=== PATIENT | male | born 1970 | race Caucasian/White ===

== ENCOUNTER 2024-01-12 11:21 | Emergency (ER) | payer MEDICAID ==
[2024-01-12 12:38] LABS: BASOPHILS ABSOLUTE AUTO 0.05 K/uL (0.00-0.20); BASOPHILS PERCENT AUTO 0.6 % (0.0-1.0); EOSINOPHILS PERCENT AUTO 1.1 % (0.0-6.0); HEMATOCRIT 39.1 % (42.0-52.0); HEMOGLOBIN 13.4 g/dL (14.0-18.0); IMMATURE GRAN ABSOLUTE AUTO 0.03 K/uL (0.00-0.05); IMMATURE GRAN PERCENT AUTO 0.3 % (0.0-0.4); LYMPHOCYTES ABSOLUTE AUTO 1.62 K/uL (1.00-4.80); LYMPHOCYTES PERCENT AUTO 18.4 % (24.0-44.0); MEAN CORPUSCULAR HEMOGLOBIN 29.6 pg (28.0-32.0); MEAN CORPUSCULAR HGB CONC 34.3 g/dL (32.0-36.0); MEAN CORPUSCULAR VOLUME 86.3 fL (83.0-99.0); MEAN PLATELET VOLUME 10.8 fL (9.4-12.4); MONOCYTES ABSOLUTE AUTO 0.72 K/uL (0.00-0.80); MONOCYTES PERCENT AUTO 8.2 % (0.0-8.0); NEUTROPHILS ABSOLUTE AUTO 6.29 K/uL (1.80-7.70); NEUTROPHILS PERCENT AUTO 71.4 % (41.0-71.0); PLATELET COUNT,PLT 234 K/uL (150-400); RED BLOOD CELL COUNT 4.53 M/uL (4.52-5.90); WHITE BLOOD CELL COUNT,WBC 8.81 K/uL (3.9-11.3)
[2024-01-12 13:04] LABS: APPEARANCE,URINE CLEAR; BILIRUBIN,URINE NEGATIVE (NEGATIVE); COLOR,URINE YELLOW; GLUCOSE,URINE NEGATIVE (NEGATIVE); KETONES,URINE NEGATIVE (NEGATIVE); LEUKOCYTE ESTERASE,URINE NEGATIVE (NEGATIVE); NITRITE,URINE NEGATIVE (NEGATIVE); OCCULT BLOOD,URINE NEGATIVE (NEGATIVE); PH,URINE 7.5 (5.0-8.0); PROTEIN,URINE NEGATIVE (NEGATIVE); UROBILINOGEN,URINE 0.2 EU/dL (<2.0)
[2024-01-12 13:11] LABS: A/G RATIO 0.9 (0.9-1.6); ALBUMIN 3.7 g/dL (3.4-5.0); BILIRUBIN TOTAL 0.5 mg/dL (0.2-1.0); CARBON DIOXIDE,CO2 31.6 mmol/L (21.0-32.0); CREATININE 1.2 mg/dL (0.8-1.3); EST CRCL DRUG DOSING (CG) 71.19 mL/min; POTASSIUM,K 3.1 mmol/L (3.5-5.1)
[2024-01-12] MEDS: Iopamidol 755 MG/ML 500 ML Multipack Bottle IVPUSH STA (13:49)
[2024-01-12] MEDS: Benzonatate 100 MG Cap PO STA (14:18)
[2024-01-12] MEDS: Potassium Chloride 20 MEQ Tab.ER PO STA (15:08)
== END 2024-01-12 15:23 | disposition home or self-care (01) ==
LOC: MW.ED 11:21
DX: J32.9 Chronic sinusitis, unspecified (principal); B96.89 Other specified bacterial agents as the cause of diseases classified elsewhere; E87.6 Hypokalemia; Z75.8 Other problems related to medical facilities and other health care; I12.9 Hypertensive chronic kidney disease with stage 1 through stage 4 chronic kidney disease, or unspecified chronic kidney disease; N18.9 Chronic kidney disease, unspecified; E78.00 Pure hypercholesterolemia, unspecified; E11.9 Type 2 diabetes mellitus without complications
CPT/HCPCS: 36415; 51798; 74177; 80053; 81003; 83690; 83735; 85025; 99284; A9270; Q9967

== ENCOUNTER 2024-04-12 21:20 | Emergency (ER) | payer MEDICAID | END 2024-04-12 22:17 | disposition left against medical advice (07) | LOC: MW.ED 21:20 | DX: Z53.21 Procedure and treatment not carried out due to patient leaving prior to being seen by health care provider (principal) ==

== ENCOUNTER 2024-04-24 10:46 | Emergency (ER) | payer MEDICAID ==
[2024-04-24 11:11] LABS: APPEARANCE,URINE CLEAR; BILIRUBIN,URINE NEGATIVE (NEGATIVE); COLOR,URINE YELLOW; GLUCOSE,URINE NEGATIVE (NEGATIVE); KETONES,URINE NEGATIVE (NEGATIVE); LEUKOCYTE ESTERASE,URINE NEGATIVE (NEGATIVE); NITRITE,URINE NEGATIVE (NEGATIVE); OCCULT BLOOD,URINE NEGATIVE (NEGATIVE); PH,URINE 7.5 (5.0-8.0); PROTEIN,URINE NEGATIVE (NEGATIVE); UROBILINOGEN,URINE 0.2 EU/dL (<2.0)
[2024-04-24] MEDS: Sodium Chloride 0.9% 1,000 ML IV ONE (12:45)
[2024-04-24] MEDS: HYDROmorphone 1 MG/ML Syringe IVPUSH ONE (12:45)
[2024-04-24] MEDS: Ondansetron 4 MG/2 ML SDV IVPUSH ONE (12:45)
[2024-04-24 12:55] LABS: BASOPHILS ABSOLUTE AUTO 0.06 K/uL (0.00-0.20); BASOPHILS PERCENT AUTO 0.5 % (0.0-1.0); EOSINOPHILS ABSOLUTE AUTO 0.16 K/uL (0.00-0.45); EOSINOPHILS PERCENT AUTO 1.3 % (0.0-6.0); HEMATOCRIT 36.8 % (42.0-52.0); HEMOGLOBIN 12.2 g/dL (14.0-18.0); IMMATURE GRAN ABSOLUTE AUTO 0.05 K/uL (0.00-0.05); IMMATURE GRAN PERCENT AUTO 0.4 % (0.0-0.4); LYMPHOCYTES ABSOLUTE AUTO 1.66 K/uL (1.00-4.80); LYMPHOCYTES PERCENT AUTO 13.8 % (24.0-44.0); MEAN CORPUSCULAR HEMOGLOBIN 27.2 pg (28.0-32.0); MEAN CORPUSCULAR HGB CONC 33.2 g/dL (32.0-36.0); MEAN CORPUSCULAR VOLUME 82.1 fL (83.0-99.0); MEAN PLATELET VOLUME 10.3 fL (9.4-12.4); MONOCYTES PERCENT AUTO 11.6 % (0.0-8.0); NEUTROPHILS ABSOLUTE AUTO 8.72 K/uL (1.80-7.70); NEUTROPHILS PERCENT AUTO 72.4 % (41.0-71.0); PLATELET COUNT,PLT 238 K/uL (150-400); RED BLOOD CELL COUNT 4.48 M/uL (4.52-5.90); WHITE BLOOD CELL COUNT,WBC 12.05 K/uL (3.9-11.3)
[2024-04-24] MEDS: Acetaminophen/oxyCODONE 325-10 MG Tab PO ONE (12:55)
[2024-04-24] MEDS: Ondansetron 4 MG Tab.DIS PO ONE (12:55)
[2024-04-24 13:26] LABS: A/G RATIO 0.8 (0.9-1.6); ALBUMIN 3.2 g/dL (3.4-5.0); BILIRUBIN TOTAL 0.4 mg/dL (0.2-1.0); CALCIUM 9.3 mg/dL (8.5-10.1); CARBON DIOXIDE,CO2 31.3 mmol/L (21.0-32.0); CREATININE 1.2 mg/dL (0.8-1.3); EST CRCL DRUG DOSING (CG) 70.37 mL/min; PROTEIN TOTAL,TP 7.4 g/dL (6.4-8.2)
== END 2024-04-24 13:37 | disposition left against medical advice (07) ==
LOC: MW.ED 10:46
DX: R10.9 Unspecified abdominal pain (principal); I12.9 Hypertensive chronic kidney disease with stage 1 through stage 4 chronic kidney disease, or unspecified chronic kidney disease; N18.9 Chronic kidney disease, unspecified; E11.22 Type 2 diabetes mellitus with diabetic chronic kidney disease; E78.00 Pure hypercholesterolemia, unspecified; J44.9 Chronic obstructive pulmonary disease, unspecified; Z79.899 Other long term (current) drug therapy; Z79.84 Long term (current) use of oral hypoglycemic drugs; Z53.29 Procedure and treatment not carried out because of patient's decision for other reasons; Z75.8 Other problems related to medical facilities and other health care
CPT/HCPCS: 36415; 74176; 80053; 81003; 85025; 96361; 96374; 96375; 99284; J1171; J2405; J7030

== ENCOUNTER 2024-09-08 19:03 | Emergency (ER) | payer MEDICAID ==
[2024-09-08] MEDS ORDERED: Sodium Chloride 0.9% 2.5 ML Syringe FLUSH PRN (19:11)
[2024-09-08] MEDS ORDERED: Sodium Chloride 0.9% 10 ML Syringe FLUSH PRN (19:11)
[2024-09-08] MEDS ORDERED: Sodium Chloride 0.9% 20 ML SDV IV PRN (19:11)
[2024-09-08] MEDS: Ondansetron 4 MG/2 ML SDV IVPUSH ONE (19:19)
[2024-09-08] MEDS: hydrALAZINE 20 MG/ML SDV IV ONE (19:19)
[2024-09-08] MEDS: Nitroglycerin 2% Oint 1 GM UD Packet TOP ONE (19:20)
[2024-09-08 19:22] LABS: HEMATOCRIT 47.3 % (42.0-52.0); HEMOGLOBIN 15.2 g/dL (14.0-18.0); MEAN CORPUSCULAR HEMOGLOBIN 26.9 pg (28.0-32.0); MEAN CORPUSCULAR HGB CONC 32.1 g/dL (32.0-36.0); MEAN CORPUSCULAR VOLUME 83.7 fL (83.0-99.0); PLATELET COUNT,PLT 306 K/uL (150-400); RED BLOOD CELL COUNT 5.65 M/uL (4.52-5.90); WHITE BLOOD CELL COUNT,WBC 15.42 K/uL (3.9-11.3)
[2024-09-08 19:35] LABS: INR 0.93 (0.86-1.11); PTT,PARTIAL THROMBOPLSTIN TIME 27.2 SEC (23.9-30.7)
[2024-09-08 19:50] LABS: SEG NEUTROPHILS ABSOLUTE MAN 10.18 K/uL (1.80-7.70); SEG NEUTROPHILS PERCENT MAN 66 % (41-71)
[2024-09-08 19:51] LABS: BASOPHILS ABSOLUTE MAN 0.15 K/uL (0.00-0.20); BASOPHILS PERCENT MAN 1 % (0-1); LYMPHOCYTES PERCENT MAN 24 % (24-44); MONOCYTES ABSOLUTE MAN 1.39 K/uL (0.00-0.80); MONOCYTES PERCENT MAN 9 % (0-8)
[2024-09-08 20:01] LABS: A/G RATIO 0.8 (0.9-1.6); ALANINE AMINOTRANSFERASE,ALT 23 IU/L (14-63); ALBUMIN 3.8 g/dL (3.4-5.0); ALKALINE PHOSPHATASE 77 U/L (46-116); ASPARTATE AMNIOTRANSFERASE,AST 21 IU/L (15-37); BILIRUBIN TOTAL 0.4 mg/dL (0.2-1.0); BLOOD UREA NITROGEN,BUN 10 mg/dL (7.0-18.0); CALCIUM 9.3 mg/dL (8.5-10.1); CHLORIDE,CL 98 mmol/L (98-107); CREATININE 1.3 mg/dL (0.8-1.3); GLUCOSE RANDOM 130 mg/dL (74-106); LIPASE 38 U/L (16-77); MAGNESIUM 1.8 mg/dL (1.8-2.4); POTASSIUM,K 3.5 mmol/L (3.5-5.1); PRO B-TYPE NATRIUR PEPT,BNPPRO 388 pg/mL (0-125); PROTEIN TOTAL,TP 8.5 g/dL (6.4-8.2); SODIUM,NA 137 mmol/L (136-148)
[2024-09-08 20:30] LABS: ESTIMATED GFR 65 mL/min (>60)
== END 2024-09-08 21:53 | disposition home or self-care (01) ==
LOC: MW.ED 19:03
DX: I16.0 Hypertensive urgency (principal); R07.9 Chest pain, unspecified; R11.2 Nausea with vomiting, unspecified; I10 Essential (primary) hypertension; E78.00 Pure hypercholesterolemia, unspecified; E11.9 Type 2 diabetes mellitus without complications; F17.210 Nicotine dependence, cigarettes, uncomplicated; Z79.84 Long term (current) use of oral hypoglycemic drugs; Z79.899 Other long term (current) drug therapy; Z79.51 Long term (current) use of inhaled steroids
CPT/HCPCS: 36415; 70450; 71045; 80053; 83690; 83735; 83880; 84484; 85025; 85610; 85730; 93005; 96374; 96375; 99285; A9270; J0360; J2405; 93010; 99284

== ENCOUNTER 2024-10-15 00:10 | Emergency (ER) | payer MEDICAID ==
[2024-10-15 00:24] LABS: BASOPHILS ABSOLUTE AUTO 0.06 K/uL (0.00-0.20); BASOPHILS PERCENT AUTO 0.5 % (0.0-1.0); EOSINOPHILS ABSOLUTE AUTO 0.14 K/uL (0.00-0.45); EOSINOPHILS PERCENT AUTO 1.1 % (0.0-6.0); IMMATURE GRAN ABSOLUTE AUTO 0.05 K/uL (0.00-0.05); IMMATURE GRAN PERCENT AUTO 0.4 % (0.0-0.4); LYMPHOCYTES ABSOLUTE AUTO 2.28 K/uL (1.00-4.80); LYMPHOCYTES PERCENT AUTO 17.4 % (24.0-44.0); MEAN PLATELET VOLUME 10.0 fL (9.4-12.4); MONOCYTES ABSOLUTE AUTO 1.24 K/uL (0.00-0.80); MONOCYTES PERCENT AUTO 9.5 % (0.0-8.0); NEUTROPHILS ABSOLUTE AUTO 9.31 K/uL (1.80-7.70); NEUTROPHILS PERCENT AUTO 71.1 % (41.0-71.0); NRBC ABSOLUTE 0.00 K/uL (0.00-0.02); NRBC PERCENT 0.0 /100WBC (0.0-0.2); PLATELET COUNT,PLT 229 K/uL (150-400); RED BLOOD CELL COUNT 4.96 M/uL (4.52-5.90); WHITE BLOOD CELL COUNT,WBC 13.08 K/uL (3.9-11.3)
[2024-10-15] MEDS: Nitroglycerin 0.4 MG Tab.SL SL ONE (00:38)
[2024-10-15 00:50] LABS: A/G RATIO 0.8 (0.9-1.6); ALANINE AMINOTRANSFERASE,ALT 21.0 IU/L (14-63); BILIRUBIN TOTAL 0.3 mg/dL (0.2-1.0); BLOOD UREA NITROGEN,BUN 12.0 mg/dL (7.0-18.0); CARBON DIOXIDE,CO2 29.1 mmol/L (21.0-32.0); CHLORIDE,CL 98.0 mmol/L (98-107); CREATININE 1.2 mg/dL (0.8-1.3); EST CRCL DRUG DOSING (CG) 65.79 mL/min; GLUCOSE RANDOM 139.0 mg/dL (74-106); POTASSIUM,K 4.1 mmol/L (3.5-5.1); PRO B-TYPE NATRIUR PEPT,BNPPRO 441.0 pg/mL (0-125); PROTEIN TOTAL,TP 7.7 g/dL (6.4-8.2); SODIUM,NA 139.0 mmol/L (136-148)
[2024-10-15 01:00] LABS: ESTIMATED GFR 72.0 mL/min (>60)
[2024-10-15 01:33] LABS: ASPARTATE AMNIOTRANSFERASE,AST 35.0 IU/L (15-37)
[2024-10-15] MEDS: Iopamidol 755 Mg/ML 100 ML Bottle IVPUSH ONE (02:09)
== END 2024-10-15 03:37 | disposition home or self-care (01) ==
LOC: MW.ED 00:10
DX: R07.9 Chest pain, unspecified (principal); I10 Essential (primary) hypertension; R93.89 Abnormal findings on diagnostic imaging of other specified body structures; E78.00 Pure hypercholesterolemia, unspecified; E66.9 Obesity, unspecified; E11.40 Type 2 diabetes mellitus with diabetic neuropathy, unspecified; Z79.899 Other long term (current) drug therapy; Z68.38 Body mass index [BMI] 38.0-38.9, adult
CPT/HCPCS: 36415; 71045; 71275; 80053; 83690; 83735; 83880; 84484; 85025; 85379; 93005; 96374; 99285; A9270; Q9967; 93010; 99284; J1171

== ENCOUNTER 2025-02-07 01:10 | Emergency (ER) | payer MEDICAID ==
[2025-02-07 01:31] LABS: MEAN PLATELET VOLUME 10.1 fL (9.4-12.4); NRBC ABSOLUTE 0.00 K/uL (0.00-0.02); NRBC PERCENT 0.0 /100WBC (0.0-0.2); PLATELET COUNT,PLT 326 K/uL (150-400); RED BLOOD CELL COUNT 5.18 M/uL (4.52-5.90); WHITE BLOOD CELL COUNT,WBC 22.02 K/uL (3.9-11.3)
[2025-02-07 01:45] LABS: LYMPHOCYTES ABSOLUTE MAN 4.62 K/uL (1.00-4.80); LYMPHOCYTES PERCENT MAN 21 % (24-44); SEG NEUTROPHILS ABSOLUTE MAN 14.75 K/uL (1.80-7.70); SEG NEUTROPHILS PERCENT MAN 67 % (41-71)
[2025-02-07 01:46] LABS: MONOCYTES ABSOLUTE MAN 2.64 K/uL (0.00-0.80); MONOCYTES PERCENT MAN 12 % (0-8)
[2025-02-07 01:51] LABS: A/G RATIO 0.9 (0.9-1.6); ALANINE AMINOTRANSFERASE,ALT 28.0 IU/L (14-63); ASPARTATE AMNIOTRANSFERASE,AST 29.0 IU/L (15-37); BILIRUBIN TOTAL 0.5 mg/dL (0.2-1.0); BLOOD UREA NITROGEN,BUN 18.0 mg/dL (7.0-18.0); CARBON DIOXIDE,CO2 33.3 mmol/L (21.0-32.0); CHLORIDE,CL 92.0 mmol/L (98-107); CREATININE 1.1 mg/dL (0.8-1.3); EST CRCL DRUG DOSING (CG) 75.88 mL/min; ESTIMATED GFR 79.0 mL/min (>60); GLUCOSE RANDOM 91.0 mg/dL (74-106); POTASSIUM,K 3.0 mmol/L (3.5-5.1); PRO B-TYPE NATRIUR PEPT,BNPPRO 121.0 pg/mL (0-125); PROTEIN TOTAL,TP 8.5 g/dL (6.4-8.2); SODIUM,NA 136.0 mmol/L (136-148)
[2025-02-07] MEDS: Potassium Chloride 20 MEQ Tab.ER PO ONE (03:52)
[2025-02-07] MEDS: Magnesium Sulfate 2 GM/50 mL 2 GM in Premix Bag 1 BAG IV ONE (03:52)
[2025-02-07 04:07] LABS: APPEARANCE,URINE CLEAR; GLUCOSE,URINE NEGATIVE (NEGATIVE); OCCULT BLOOD,URINE NEGATIVE (NEGATIVE)
[2025-02-07] MEDS: Iopamidol 755 MG/ML 500 ML Multipack Bottle IVPUSH STA (04:16)
== END 2025-02-07 05:25 | disposition home or self-care (01) ==
LOC: MW.ED 01:10
DX: J18.9 Pneumonia, unspecified organism (principal); E87.6 Hypokalemia; R07.89 Other chest pain; E83.42 Hypomagnesemia; I10 Essential (primary) hypertension; E78.00 Pure hypercholesterolemia, unspecified; E11.9 Type 2 diabetes mellitus without complications; E66.9 Obesity, unspecified; K21.9 Gastro-esophageal reflux disease without esophagitis; F17.200 Nicotine dependence, unspecified, uncomplicated; Z79.899 Other long term (current) drug therapy; Z79.84 Long term (current) use of oral hypoglycemic drugs; Z68.31 Body mass index [BMI] 31.0-31.9, adult
CPT/HCPCS: 36415; 71045; 71260; 74177; 80053; 81003; 83735; 83880; 84484; 85025; 85379; 93005; 96365; 99285; A9270; J3475; Q9967; 93010; 99284